=== PATIENT | female | born 1990 | race African-American/Black ===

== ENCOUNTER 2024-06-13 10:11 | Emergency (ER) | payer OTHER ==
[~2024-06-13] VITALS: Ht 175.3 cm; Wt 91.0 kg
[2024-06-13 10:19] VITALS: BP 150/111; RESP 18; TEMP 36.9; O2SAT 100
[2024-06-13 10:20] VITALS: PULSE 90; O2SAT 100
[2024-06-13 10:44] VITALS: TEMP 98.5
[2024-06-13] MEDS: ACETAMINOPHEN 325MG TABLET PO ONE (10:44)
[2024-06-13] MEDS ORDERED: ACET-2708 MT (11:14)
== END 2024-06-13 11:22 | disposition home or self-care (01) ==
LOC: ER 10:11
DX: M25.571 Pain in right ankle and joints of right foot (principal); I10 Essential (primary) hypertension; W18.30XA Fall on same level, unspecified, initial encounter; Y93.89 Activity, other specified; Y92.89 Other specified places as the place of occurrence of the external cause; Y99.8 Other external cause status
CPT/HCPCS: 73610; 99283; Z7610; A4606

== ENCOUNTER 2024-12-17 17:16 | Emergency (ER) | payer OTHER ==
[~2024-12-17] VITALS: Ht 172.7 cm; Wt 75.0 kg
[~2024-12-17 17:16] MED LIST: ACET-2708 MT
[2024-12-17 17:28] VITALS: O2SAT 100
[2024-12-17] MEDS ORDERED: METHYLPREDNISOLONE 40MG/ML INJ IV ONE (19:00)
[2024-12-17] MEDS: KETOROLAC 30MG/ML VIAL IM ONE (19:40)
[2024-12-17] MEDS: METHYLPREDNISOLONE SOD SUCC 125MG/2ML (ACT-O-VIAL) IV SCH (19:40)
[2024-12-17 21:23] LABS: CLARITY URINE CLOUDY (CLEAR); COLOR URINE YELLOW (YELLOW); GLUCOSE URINE NEGATIVE (NEGATIVE); KETONES URINE TRACE (NEGATIVE); LEUKOCYTE ESTERASE URINE TRACE (NEGATIVE); NITRITE URINE NEGATIVE (NEGATIVE); OCCULT BLOOD URINE TRACE (NEGATIVE); PH URINE 5.5 (4.5-8.0); PROTEIN URINE 1+ (NEGATIVE); SPECIFIC GRAVITY URINE 1.036 (1.005-1.030); UROBILINOGEN URINE 0.2 E.U./dL (0.2-1.0)
[2024-12-17 21:27] LABS: BASOPHILS % 0.3 % (0.0-2.0); EOSINOPHILS % 0.6 % (0.0-5.0); HEMATOCRIT. 36.6 % (36.0-48.0); HEMOGLOBIN. 11.8 g/dL (12.0-16.0); LYMPHOCYTES % 18.8 % (20.0-50.0); MEAN PLATELET VOLUME 8.7 fl (7.4-10.4); MONOCYTES % 3.9 % (2.0-8.0); NEUTROPHILS % 76.4 % (40.0-76.0); PLATELET 274 x1000/uL (130-400); RED BLOOD CELL COUNT 4.52 mill/uL (4.2-5.4); RED CELL DISTRIBUTION WIDTH 15.8 % (11.6-14.6)
[2024-12-17 21:36] LABS: BACTERIA URINE 2+; SQUAMOUS EPITHELIAL CELL URINE 2+ /lpf (RARE/1+)
[2024-12-17 21:38] LABS: CREATININE 1.0 mg/dL (0.6-1.0)
[2024-12-17 21:39] LABS: UREA NITROGEN BLOOD 6 mg/dL (9-23)
[2024-12-17 21:40] LABS: ASPARTATE AMINOTRANSFERASE 12 IU/L (<34)
[2024-12-17 21:41] LABS: BILIRUBIN DIRECT 0.1 mg/dL (<=3.0); BILIRUBIN TOTAL 0.3 mg/dL (0.1-1.0); PROTEIN TOTAL 7.6 g/dL (6.0-8.3)
[2024-12-17 22:45] VITALS: TEMP 36.9
[2024-12-17] MEDS: HYDRALAZINE HCL 10MG TABLET PO ONE (22:45)
[2024-12-17] MEDS ORDERED: IOHEXOL-300 100 ML BOTTLE ONE (22:48)
[2024-12-17] MEDS: AMLODIPINE 10MG TABLET PO ONE (23:05)
[2024-12-17] MEDS ORDERED: AMOX1TAB16 MT (23:57)
[2024-12-18 00:32] VITALS: BP 168/96; PULSE 82; RESP 20; O2SAT 100
== END 2024-12-18 00:37 | disposition home or self-care (01) ==
LOC: ER 17:16
DX: J32.2 Chronic ethmoidal sinusitis (principal); J04.0 Acute laryngitis; I10 Essential (primary) hypertension; Z98.890 Other specified postprocedural states
CPT/HCPCS: 80076; 80048; 81003; 81025; 87430; 85025; 87070; 36415; 71045; 70491; 96372; 96374; 99285; Q9967; J1885; J2919; Z7610; A4606